=== PATIENT | female | born 1990 | race Hispanic/Latino ===

== ENCOUNTER 2022-05-31 07:16 | Emergency (ER) | payer SELFPAY ==
--- NOTE | 2022-05-31 08:07 | RAD REPORT ---
EXAM DESCRIPTION: RAD - Ankle Left 3 View -05/31/2022 7:55 am CLINICAL HISTORY: Left ankle pain status post injury FINDINGS: No fracture or dislocation is seen. Lateral soft tissue swelling
--- NOTE | 2022-05-31 08:16 | ER ---
Nurse's Notes [facility] Name: Elsy Escobar Age: 32 yrs Sex: Female : 1990 Arrival Date: 05/31/2022 Time: 07:18 Bed 11 Private MD: Diagnosis: Sprain of unspecified ligament of left ankle, initial encounter Presentation: 05/31 07:25 Chief complaint: Patient states: left ankle injury. Coronavirus screen: Vaccine status: jg9 Patient reports receiving the 2nd dose of the covid vaccine. Ebola Screen: Patient negative for fever greater than or equal to 101.5 degrees Fahrenheit, and additional compatible Ebola Virus Disease symptoms Patient denies exposure to infectious person. Patient denies travel to an Ebola-affected area in the 21 days before illness onset. Initial Sepsis Screen: Does the patient meet any 2 criteria? No. Patient's initial sepsis screen is negative. Does the patient have a suspected source of infection? No. Patient's initial sepsis screen is negative. Risk Assessment: Do you want to hurt yourself or someone else? Patient reports no desire to harm self or others. Onset of symptoms was May 30, 2022. 07:25 Method Of Arrival: Wheelchair jg9 07:25 Acuity: ALICIA 4 jg9 Triage Assessment: 07:27 General: Appears uncomfortable, Behavior is calm, cooperative. Pain: Complains of pain jg9 in left foot. Musculoskeletal: Reports pain in left foot patient was playing with her kid when she slipped and twisted her left ankle. NURSING DIRECTOR: 07:27 LMP 05/31/2022 jg9 Historical: - Allergies: 07:26 No Known Allergies; jg9 - Home Meds: 07:26 None [Active]; jg9 - PMHx: 07:26 None; jg9 - Immunization history:: Client reports receiving the 2nd dose of the Covid vaccine, Pneumococcal vaccine is not up to date. - Social history:: Smoking status: Patient denies any tobacco usage or history of. - Family history:: not pertinent. - Hospitalizations: : No recent hospitalization is reported. Screenin:27 Abuse screen: Denies threats or abuse. Denies injuries from another. Nutritional jg9 screening: No deficits noted. Tuberculosis screening: No symptoms or risk factors identified. Fall Risk None identified. Vital Signs: 07:25 BP 102 / 77; Pulse 81; Resp 14 S; Temp 98.2(TE); Pulse Ox 99% on R/A; Weight 66.68 kg; jg9 Height 5 ft. 0 in. (152.40 cm); Pain 9/10; 07:25 Body Mass Index 28.71 (66.68 kg, 152.40 cm) jg9 ED Course: 07:18 Patient arrived in ED. as 07:20 Nuha Howard, BOO is Primary Nurse. jg9 07:21 Elio Simmons MD is Attending Physician. rn 07:26 Triage completed. jg9 07:27 Arm band placed on right wrist. jg9 07:28 Patient has correct armband on for positive identification. jg9 07:35 Warm blanket given. jg9 07:57 XRAY Ankle LEFT 3 view In Process Unspecified. EDMS 08:33 No provider procedures requiring assistance completed. jg9 08:33 Patient did not have IV access during this emergency room visit. jg9 Administered Medications: No medications were administered Medication: 07:28 VIS not applicable for this client. jg9 Outcome: 08:16 Discharge ordered by . rn 08:33 Discharged to home via wheelchair. jg9 08:33 Condition: stable 08:33 Discharge instructions given to patient, Instructed on discharge instructions, follow up and referral plans. Demonstrated understanding of instructions, follow-up care. 08:33 Patient left the ED. jg9 Signatures: Dispatcher [employer] EDKY Marylin Pichardo as Elio Simmons MD MD rn Gilmore, Jennifer, RN RN jg9
--- NOTE | 2022-05-31 08:16 | EDPHYS ---
Physician Documentation [facility] Name: Elsy Escobar Age: 32 yrs Sex: Female : 1990 Arrival Date: 05/31/2022 Time: 07:18 Bed 11 Private MD: ED Physician Elio Simmons HPI: 05/31 07:38 This 32 yrs old Female presents to ER via Wheelchair with complaints of Ankle rn Injury, Ankle Swelling. 07:38 The patient presents with decreased range of motion, an injury, pain. The complaints rn affect the left ankle. Onset: The symptoms/episode began/occurred yesterday. Context: The problem was sustained outdoors, resulted from a mis-step by the patient, The mechanism of injury involved inversion of the affected ankle. The patient can partially bear weight on the affected extremity. the patient is able to ambulate. Associated signs and symptoms: Pertinent positives: swelling, Pertinent negatives: weakness. Modifying factors: The symptoms are alleviated by OTC meds, sitting, the symptoms are aggravated by weight bearing. Severity of symptoms: At their worst the symptoms were moderate, in the emergency department the symptoms are unchanged. The patient has not experienced similar symptoms in the past. The patient has not recently seen a physician. SCALE EXPERT: 07:27 LMP 05/31/2022 jg9 Historical: - Allergies: 07:26 No Known Allergies; jg9 - Home Meds: 07:26 None [Active]; jg9 - PMHx: 07:26 None; jg9 - Immunization history:: Client reports receiving the 2nd dose of the Covid vaccine, Pneumococcal vaccine is not up to date. - Social history:: Smoking status: Patient denies any tobacco usage or history of. - Family history:: not pertinent. - Hospitalizations: : No recent hospitalization is reported. ROS: 07:38 Constitutional: Negative for fever, chills, and weight loss, MS/Extremity: + injury and rn pain to left ankle Skin: Negative for open wounds Neuro: Negative for numbness/tingling Exam: 07:38 Constitutional: This is a well developed, well nourished patient who is awake, alert, rn and in no acute distress. MS/ Extremity: Pulses equal, no cyanosis. Neurovascular intact. + tenderness and swelling to left lateral malleolus, no open wounds, no tenderness proximal tib/fib/knee. No tenderness or swelling to foot. Mild tenderness medial malleolus. Vital Signs: 07:25 BP 102 / 77; Pulse 81; Resp 14 S; Temp 98.2(TE); Pulse Ox 99% on R/A; Weight 66.68 kg; jg9 Height 5 ft. 0 in. (152.40 cm); Pain 9/10; 07:25 Body Mass Index 28.71 (66.68 kg, 152.40 cm) 9 MDM: 07:21 Patient medically screened. rn 08:15 Differential diagnosis: fracture, sprain. Data reviewed: vital signs, nurses notes, rn radiologic studies, plain films, and as a result, I will discharge patient. Counseling: I had a detailed discussion with the patient and/or guardian regarding: the historical points, exam findings, and any diagnostic results supporting the discharge/admit diagnosis, radiology results, the need for outpatient follow up, to return to the emergency department if symptoms worsen or persist or if there are any questions or concerns that arise at home. Response to treatment: There is no appreciated change of the patient's symptoms at this time, and as a result, I will discharge patient. Special discussion: I discussed with the patient/guardian in detail that at this point there is no indication for admission to the hospital. It is understood, however, that if the symptoms persist or worsen the patient needs to return immediately for re-evaluation. 05/31 07:27 Order name: XRAY Ankle LEFT 3 view; Complete Time: 08:15 rn Administered Medications: No medications were administered Disposition Summary: 05/31/22 08:16 Discharge Ordered Location: Home rn Problem: new rn Symptoms: are unchanged rn Condition: Stable rn Diagnosis - Sprain of unspecified ligament of left ankle, initial encounter rn Followup: rn - With: Private Physician - When: As needed - Reason: Recheck today's complaints, Re-evaluation by your physician Discharge Instructions: - Discharge Summary Sheet rn - Ankle Sprain rn Forms: - Medication Reconciliation Form rn - Thank You Letter rn - Antibiotic [employer] freight [employer] - Prescription Opioid Use rn Signatures: Dispatcher [employer] EDElio Padilla MD MD rn Gilmore, Jennifer, RN RN jg9
[2022-05-31 08:38] VITALS: BP 102/77; TEMP 98.2; O2SAT 99
== END 2022-05-31 08:33 | disposition home or self-care (01) ==
LOC: ER 07:16
DX: S93.402A Sprain of unspecified ligament of left ankle, initial encounter (principal)
CPT/HCPCS: 99283